=== PATIENT | female | born 1965 | race Caucasian/White ===

== ENCOUNTER 2017-08-18 08:51 | Day surgery (SDC) | payer BC, SELFPAY ==
[2017-08-18] VITALS (7 sets, daily range): BP systolic 128–157; BP diastolic 72–89; PULSE 84–93; RESP 16–18; TEMP 36.4–37; O2SAT 98–100; BMI 36.4
[2017-08-18 09:32] LABS: Bedside Glucose 111 mg/dL (70-110)
--- NOTE | 2017-08-18 10:10 | PCM.HP.STD ---
Problem List (1) Dysphagia, unspecified Status: Acute Qualifiers: Dysphagia type: unspecified Qualified Code(s): R13.10 - Dysphagia, unspecified (2) Colon cancer screening Status: Acute History of Present Illness Date of Admission: 08/18/17 The patient is a 52 year old F who presents with symptoms of dysphasia and food getting stuck in her esophagus. In addition she needs a screening colonoscopy Past Medical History Allergies adhesive tape Allergy (Intermediate, Verified 08/16/17 15:54) rash Penicillins Allergy (Intermediate, Verified 08/16/17 15:54) rash Sulfa (Sulfonamide Antibiotics) Allergy (Intermediate, Verified 08/16/17 15:54) hives Home Medications: Ambulatory Orders Medication Instructions Recorded aspirin 81 mg tablet,delayed 81 mg PO .daily tab 08/12/17 release levothyroxine 75 mcg capsule 75 mcg PO QDAY cap 08/12/17 losartan 50 mg tablet 50 mg PO QDAY 08/12/17 lovastatin 20 mg tablet 20 mg PO QDAY 08/12/17 metformin 500 mg tablet 500 mg PO QDAY tab 08/12/17 multivitamin capsule 1 cap PO QDAY 08/12/17 omeprazole 20 mg capsule,delayed 20 mg PO QHS 08/12/17 release sertraline 100 mg tablet 150 mg PO QDAY tab 08/12/17 Cholecalciferol (Vitamin D3) 1,000 unit PO DAILY 08/16/17 [Vitamin D3] Iron Carbonyl [Feosol] 65 mg PO DAILYCM 08/16/17 Smoking Status: Never smoker - *Family History Maternal History Items: No pertinent history VTE Information - Inpt Only VTE Present on Admission: No VTE Mechan Device Prophylaxis: None VTE Pharm Prophylaxis ordered?: No Reason prophylaxis not ordered:: Treatment Not Indicated Patient Problems: Active and Suspected Problems (Last Updated 08/12/17 @ 15:06 by Naty Farrar) Dysphagia, unspecified (Acute) Colon cancer screening (Acute) - Physical Exam Lungs: Clear to auscultation Cardiovascular: Regular rate, Regular Rhythm, No murmurs Abdomen: Bowel Sounds Present, Soft, Non Tender, Non-Distended Vital Signs Temp Pulse Resp BP Pulse Ox 98.6 F 93 16 157/89 H 98 08/18/17 09:16 08/18/17 09:16 08/18/17 09:16 08/18/17 09:16 08/18/17 09:16 Oxygen Delivery Method Room Air Weight: 205 lb 14.588 oz Body Mass Index (BMI) 36.4 POC Glucose 08/18/17 09:15 POC Glucose 111 H Assessment/Plan Active and Suspected Problems (Last Updated 08/12/17 @ 15:06 by Naty Farrar) Dysphagia, unspecified (Acute) Colon cancer screening (Acute) My plan is to perform an esophagogastroduodenoscopy and a colonoscopy
--- NOTE | 2017-08-18 10:12 | PCM.OPRPT ---
Problem List (1) Dysphagia, unspecified Status: Acute Qualifiers: Dysphagia type: unspecified Qualified Code(s): R13.10 - Dysphagia, unspecified (2) Colon cancer screening Status: Acute Report of Operation Date of Procedure: 08/18/17 Pre-Operative Diagnosis: R13.10 dysphasia. Z12.11 screening colonoscopy Post-Operative Diagnosis: Same Surgery/Procedure Performed:: 00093 esophagogastroduodenoscopy. 53277 colonoscopy Type of Anesthesia:: MAC Anesthesiologist: Ford Wagner Description of Procedure: Patient was brought back into the endoscopy suite. Back of her throat was sprayed with Cetacaine spray. A bite-block was placed. She was placed on the left lateral decubitus position. She was given graded anesthesia. Scope was inserted in the back of the oropharynx and directed down through the esophagus into the stomach and into the duodenum without difficulty. Operative findings: 1. Duodenum: Normal appearance no mass lesions no ulcerations. 2. Stomach: Normal appearance no mass lesions retroflexion showed a large paraesophageal hernia. There is no signs of mass lesions there was no ulcers no erythema and no bleeding. 3. Esophagus: Diaphragmatic hiatus was at 40 cm ZE line was at 36 cm it was normal there was a slight Schatzki's ring associated with it but the scope easily traversed and and I did not did not need dilatation. The rest of the esophagus was entirely normal. I am going to see the patient back in the office in a week I think that we should probably work her up for reflux and start with esophageal manometry and work her way up with a 48 hour pH probe to see if this is probably giving her discomfort when she is swallowing. Colonoscope was inserted into the rectum directed up to the rectum, sigmoid colon, descending colon, transverse colon, ascending colon, to the cecum. It was very difficult to get through twisty sigmoid colon and it took quite a bit of pressure to get this done. Operative findings: 1. Cecum: Normal appearance no mass lesions. 2. Ascending colon: Normal appearance no mass lesions. 3. Transverse colon: Normal appearance no mass lesions. 4. Descending colon: Normal appearance no mass lesions. 5. Sigmoid colon: Normal appearance no mass lesions Patient will need another colonoscopy in 10 years
== END 2017-08-18 11:02 | disposition home or self-care (01) ==
LOC: EN 08:52 → AC 08:54
PROVIDERS: Family Provider Student in an Organized Health Care Education/Training Program; PCP Student in an Organized Health Care Education/Training Program; Visit Provider Surgery
PROC: 0DJD8ZZ Inspection of Lower Intestinal Tract, Via Natural or Artificial Opening Endoscopic (ICD-10-PCS; CPT 45378; principal; 2017-08-18 09:55)
DX: Z12.11 Encounter for screening for malignant neoplasm of colon (principal); R13.10 Dysphagia, unspecified; Z79.82 Long term (current) use of aspirin; I10 Essential (primary) hypertension; K21.9 Gastro-esophageal reflux disease without esophagitis
CPT/HCPCS: 43235; 45378; 82962; J7120

== ENCOUNTER 2021-08-15 18:32 | Emergency (ER) | payer BC, SELFPAY ==
[2021-08-15 18:33] VITALS: BP 170/92; PULSE 92; RESP 18; TEMP 35.7; BMI 37.7
--- NOTE | 2021-08-15 20:12 | CT_ITS ---
STUDY: CT BRAIN WITHOUT CONTRAST REASON FOR EXAM: Female, 56 years old. Bent over and fell. Laceration to left temporal. RADIATION DOSAGE (If Supplied By Facility): CTDIvol = ( 47.06 ) mGy, DLP = ( 855.03 ) mGycm TECHNIQUE: Transaxial CT imaging of the brain was performed without administration of intravenous contrast material. Individualized dose optimization techniques were used for this CT. COMPARISON: None. FINDINGS: Mild to moderate scalp swelling is present over the left temporal bone, extending superiorly over the lateral convexity of the left side of the frontal bone. Subcutaneous hematoma formation and small focal laceration also noted. No visualized skull fractures or hemorrhagic contusions of the brain parenchyma. No extra-axial fluid collection is seen. Normal calvarium. Normal size ventricles and extra-axial spaces for the patient''s age. Normal white matter tracts of the cerebral hemispheres. Normal basal ganglia and thalami. Normal brainstem. Normal cerebellum. There is no intracranial hemorrhage. There are no findings of an acute ischemic infarction. Normal visualized paranasal sinuses. CT/Brain/Head without Contrast IMPRESSION: 1. Mild to moderate scalp swelling is present over the left temporal bone, extending superiorly over the lateral convexity of the left side of the frontal bone. Subcutaneous hematoma formation and small focal laceration also noted. No visualized skull fractures or hemorrhagic contusions of the brain parenchyma. No extra-axial fluid collection is seen. 2. Normal unenhanced CT scan of the brain. Electronically Signed: Satish Montalvo MD at 21:08 EST ,
--- NOTE | 2021-08-15 20:26 | EX.ED.GENINJ ---
HPI History of Present Illness Chief Complaint: Head Injury Informant: patient Onset/Context/Timing Onset: Today Mechanism/Context: Fall Location: Left temporal area Current Severity: Gone Worsened by: Nothing Relieved by: Nothing Associated Symptoms Associated Symptoms: Negative for Parasthesias, Weakness, Inability to ambulate, Loss of consciousness and Amnesia Narrative Narrative: Patient presents with head injury that occurred today. Patient states she fell forward and hit her head. Patient states she was bending forward to mushroom picker a can when she fell forward. Patient denies any loss of consciousness or syncopal episode. Patient denies any paresthesias or weakness. Patient denies any lightheadedness or dizziness. Patient denies any pain at the present time. Patient states her last tetanus was between 5 and 10 years ago. [facility] Medical History (Updated 08/15/21 @ 22:[address] David Louis, ) Acid reflux Anxiety Diabetes Diarrhea Difficulty swallowing Hemorrhoids Hyperlipidemia Hypertension Thyroid disease Home Medications aspirin 81 mg tablet,delayed release 81 mg PO .daily tab 08/12/17 [History Last Taken 08/12/17] levothyroxine 75 mcg capsule 75 mcg PO QDAY cap 08/12/17 [History Last Taken 08/18/17 06:00] losartan 50 mg tablet 50 mg PO QDAY 08/12/17 [History Last Taken 08/18/17 06:00] lovastatin 20 mg tablet 20 mg PO QDAY 08/12/17 [History Last Taken Unknown] metformin 500 mg tablet 500 mg PO QDAY tab 08/12/17 [History Last Taken Unknown] multivitamin 1 cap PO QDAY 08/12/17 [History Last Taken Unknown] omeprazole 20 mg capsule,delayed release 20 mg PO QHS 08/12/17 [History Last Taken Unknown] sertraline 100 mg tablet 150 mg PO QDAY tab 08/12/17 [History Last Taken Unknown] cholecalciferol (vitamin D3) 1,000 unit PO DAILY 08/16/17 [History Last Taken Unknown] iron, carbonyl 65 mg PO DAILYCM 08/16/17 [History Last Taken 08/12/17] Allergy/AdvReac Type Severity Reaction Status Date / Time adhesive tape Allergy Intermediate rash Verified 08/24/17 09:20 Penicillins Allergy Intermediate rash Verified 08/24/17 09:20 Sulfa (Sulfonamide Allergy Intermediate hives Verified 02/27/18 09:20 Antibiotics) Family History Grandmother Diabetes Mother Heart disease Hypertension High cholesterol Father High cholesterol Hypertension Grandfather CVA (cerebral vascular accident) Grandmother CVA (cerebral vascular accident) Surgical History hhistory right breast lumpectomy History of laparoscopic cholecystectomy History of wisdom tooth extraction Social History Smoking Status: Never smoker alcohol intake: never substance use type: does not use ROS ROS ED Constitutional Constitutional ED: Denies chills or fever(s) Eyes Eyes: Denies blurry vision or change in vision ENT ENT ED: Denies rhinorrhea or sore throat Cardiovascular Cardiovascular: Denies chest pain or palpitations Respiratory/Chest Respiratory/Chest: Denies cough or dyspnea Gastrointestinal Gastrointestinal: Denies nausea or vomiting Genitourinary Genitourinary ED: Denies dysuria or hematuria Musculoskeletal Musculoskeletal: Reports neck pain; Denies back pain Integumentary Denies abscess or rash Neurologic Neurologic: Reports headache(s); Denies weakness Allergic/Immunologic Allergic/Immunologic ED: Denies mouth swelling or urticaria EXAM Physical Exam Const Vital Signs: 08/15/21 18:33 Temperature 96.3 F L Temperature Source Temporal Pulse Rate 92 Respiratory Rate 18 Blood Pressure 170/92 H Blood Pressure Mean 118 Positive well nourished and well developed General Appearance ED: well developed and NAD HEENT HEENT Narrative: There is a small hematoma and tenderness over the left temporal area. There is a 1 cm full-thickness linear laceration in the left temporal area. There is no active bleeding noted. There is no bony crepitance or step-off. Eyes PERRL and EOMs intact bilaterally Neck full ROM Extremity normal to inspection and full ROM Neuro oriented x3, CN's II-XII intact bilaterally, moves all extremities, no focal motor deficits and no sensory deficits noted Sensorium / Orientation: alert Psych mental status grossly normal PROC Procedures Lacerations Scalp: Length: 1.5 cm Depth: Sub Q Shape: Linear Prep: Sterile Conditions and Shure-Clens Laceration repair: Irrigated, Lidocaine and Local Number of Sutures/[place]: 2 Suture Information: - ([place]) MDM MDM MDM Narrative Medical decision making narrative: CT scan of the brain was obtained. There is no acute intracranial abnormality. There is a soft tissue hematoma and laceration noted. This was interpreted by the radiologist and reviewed by myself.. The wound was cleaned and irrigated. States the wound was anesthetized with 1% plain lidocaine locally. The wound was closed with 2 simple joshua. Patient tolerated the procedure well. Patient was instructed to follow-up with her primary care physician in 5 to 7 days for wound recheck and staple removal. Patient was given head injury instructions. Patient understood and was agreeable with the plan. All questions were answered Radiography Diagnostic Testing: Clinical Impression(s) from Imaging Studies Brain CT 08/15/21 20:12 IMPRESSION: 1. Mild to moderate scalp swelling is present over the left temporal bone, extending superiorly over the lateral convexity of the left side of the frontal bone. Subcutaneous hematoma formation and small focal laceration also noted. No visualized skull fractures or hemorrhagic contusions of the brain parenchyma. No extra-axial fluid collection is seen. 2. Normal unenhanced CT scan of the brain. Electronically Signed: Satish Montalvo MD at 21:08 [facility] Reading Location ID and State: [facility] / [place] , Service support , Discharge Plan Triage Chief Complaint: Head Injury ED Provider: David Louis Dx/Rx/DC Orders Clinical Impression: Laceration of scalp, Head injury Instructions: ED Head Injury (Adult), ED Laceration Scalp Stitches or [place] Prescriptions: No Action multivitamin capsule capsule 1 cap PO QDAY RF: 0 aspirin [Adult Aspirin Regimen] 81 mg tablet,delayed release (DR/EC) 81 mg PO .daily RF: 0 lovastatin 20 mg tablet 20 mg PO QDAY RF: 0 losartan 50 mg tablet 50 mg PO QDAY RF: 0 metformin 500 mg tablet 500 mg PO QDAY RF: 0 sertraline [Zoloft] 100 mg tablet 150 mg PO QDAY RF: 0 levothyroxine 75 mcg capsule 75 mcg capsule 75 mcg PO QDAY RF: 0 omeprazole 20 mg capsule,delayed release(DR/EC) 20 mg PO QHS RF: 0 cholecalciferol (vitamin D3) 1,000 UNIT capsule 1,000 unit PO DAILY RF: 0 iron, carbonyl 45 MG capsule 65 mg PO DAILYCM RF: 0 Primary Care Provider: Kaden Pemberton Referrals: Kaden Pemberton DO [Primary Care Provider] - 5 Days for suture removal Disposition Disposition: Home, Self Care
== END 2021-08-15 22:44 | disposition home or self-care (01) ==
PROVIDERS: Emergency Provider Emergency Medicine; PCP Student in an Organized Health Care Education/Training Program; Visit Provider Emergency Medicine
DX: S01.01XA Laceration without foreign body of scalp, initial encounter (principal); E11.9 Type 2 diabetes mellitus without complications; W19.XXXA Unspecified fall, initial encounter; E78.5 Hyperlipidemia, unspecified; I10 Essential (primary) hypertension
CPT/HCPCS: 12001; 70450; 99282